=== PATIENT | female | born 1950 | race Two or more races ===

== ENCOUNTER 2017-04-23 19:42 | Emergency (ER) | payer MEDICARE, MEDICAID ==
[~2017-04-23] VITALS: Ht 167.6 cm; Wt 63.5 kg
[2017-04-23 19:45] VITALS: BP 152/100
[2017-04-23] MEDS ORDERED: Meclizine 25mg tab ORAL PRN (20:00)
--- NOTE | 2017-04-23 20:36 | Emergency Room Report ---
History of Present Illness General Chief Complaint: Nausea Source: EMS (Anca Curtis.Liz) Present Illness HPI 66-year-old female presents to the emergency department complaining of sudden onset of dizziness with nausea and non-bloody vomiting x40 minutes. Patient arrives the dizziness as if the room is spinning about her patient states that last several seconds and returns again. She denies abdominal pain, head trauma , fevers, chills, recent upper respiratory illness, tinnitus, changes in hearing. She denies difficulty with speech, weakness in the extremities Neck/ back pain, or having experienced this type of dizziness in the past. Pt. has Hx of fatty liver and hypothyroid. Denies significant changes in weight, or night sweats. Denies ill contacts with similar symptoms. Denies CP, Palpitations, LOC , AMS, dizziness, Changes in Vision, Sensation, paresthesias, or a sudden severe headache. (Anca Curtis) Allergies: Coded Allergies: LIDOCAINE (Verified Allergy, Unknown, 04/23/17) PIROXICAM (Verified Allergy, Unknown, 04/23/17) Patient History Past Medical History: see triage record, other - fatty liver Past Surgical History: none Pertinent Family History: none Last Menstrual Period: N/A Now: No Reviewed Nursing Documentation: PMH: Agreed, PSxH: Agreed (Anca Curtis) Review of Systems All Other Systems: negative except mentioned in HPI (Anca Curtis) Physical Exam Vital Signs Date Time Temp Pulse Resp B/P (MAP) Pulse Ox O2 Delivery O2 Flow Rate FiO2 04/23/17 19:35 98.4 85 18 152/100 98 Room Air Sp02 EP Interpretation: reviewed, normal General Appearance: alert, GCS 15, non-toxic, mild distress - actively vomiting Head: normocephalic, atraumatic Eyes: bilateral eye normal inspection, bilateral eye PERRL ENT: hearing grossly normal, normal voice, TMs + canals normal Neck: full range of motion Respiratory: chest non-tender, lungs clear, normal breath sounds, speaking full sentences Cardiovascular #1: regular rate, rhythm Cardiovascular #2: 2+ radial (R) Gastrointestinal: normal bowel sounds, non tender, soft, no guarding, no rebound Musculoskeletal: back normal, gait/station normal Neurologic: alert, oriented x3, responsive, motor strength/tone normal, sensory intact, normal gait, speech normal, no pronator, nystagmus - horizontal nystagmus upon tilting head to the right, no verticle nystagmus, turning head to either side in the supine position illicits vertigo and vomiting. Skin: normal color, no rash, warm/dry, well hydrated (Anca Curtis) Medical Decision Making PA Attestation Dr. Wilder is my supervising Physician whom patient management has been discussed with. (Anca Curtis) Diagnostic Impression: Primary Impression: Peripheral vertigo Qualified Codes: H81.399 - Other peripheral vertigo, unspecified ear Additional Impressions: Hypokalemia with normal acid-base balance Vomiting alone Qualified Codes: R11.11 - Vomiting without nausea ER Course 66-year-old female presents to the emergency department complaining of sudden onset of dizziness with nausea and non-bloody vomiting x40 minutes. Patient arrives the dizziness as if the room is spinning about her patient states that last several seconds and returns again. She denies abdominal pain, head trauma , fevers, chills, recent upper respiratory illness, tinnitus, changes in hearing. She denies difficulty with speech, weakness in the extremities Neck/ back pain, or having experienced this type of dizziness in the past. Pt. has Hx of fatty liver and hypothyroid. Denies significant changes in weight, or night sweats. Denies ill contacts with similar symptoms. Denies CP, Palpitations, LOC , AMS, dizziness, Changes in Vision, Sensation, paresthesias, or a sudden severe headache. Ddx considered but are not limited to Mnire's, BPPV, labrinitis, cerebellar stroke, hypovolemia, cardiac cause. Vital signs: are WNL, pt. is afebrile H&PE are most consistent with : peripheral vertigo will check cardiac labs and EKG ORDERS: -CBC: unremarkable -CMP: hypokalemia 2.9, and elevated glucose 152 -Troponins, CK- all negative ED INTERVENTIONS: -Zofran 4mg IV -1 liter NS Bolus IV -10mg Reglan IV -25mg Meclizine PO -KCl 60Meq PO -re-assessment pt. reports her symptoms have subsided, the dizziness has resolved able to turn her head side to side without return of the vertigo symptoms she previously had. pt. reports her stomach is sore and burning, and has a mild BADILLO. will give Zantac and Tylenol PO for these symptoms while awaiting final lab results. d/w pt. will d/c with rx for meclizine to be taken for dizziness, to follow up with her PCP within 3 days, or return sooner to the ED with worsening or new symptoms. DISCHARGE: At this time pt. is stable for d/c to home. Will provide printed patient care instructions, and any necessary prescriptions. Care plan and follow up instructions have been discussed with the patient prior to discharge. Labs Test 04/23/17 20:00 White Blood Count 6.8 K/UL (4.8-10.8) Red Blood Count 5.10 M/UL (4.20-5.40) Hemoglobin 15.3 G/DL (12.0-16.0) Hematocrit 45.4 % (37.0-47.0) Mean Corpuscular Volume 89 FL (80-99) Mean Corpuscular Hemoglobin 30.0 PG (27.0-31.0) Mean Corpuscular Hemoglobin Concent 33.7 G/DL (32.0-36.0) Red Cell Distribution Width 11.4 % (11.6-14.8) Platelet Count 160 K/UL (150-450) Mean Platelet Volume 7.5 FL (6.5-10.1) Neutrophils (%) (Auto) 46.7 % (45.0-75.0) Lymphocytes (%) (Auto) 41.4 % (20.0-45.0) Monocytes (%) (Auto) 6.5 % (1.0-10.0) Eosinophils (%) (Auto) 4.1 % (0.0-3.0) Basophils (%) (Auto) 1.3 % (0.0-2.0) Sodium Level 137 MMOL/L (136-145) Potassium Level 2.9 MMOL/L (3.5-5.1) Chloride Level 101 MMOL/L (98-107) Carbon Dioxide Level 23 MMOL/L (21-32) Anion Gap 13 mmol/L (5-15) Blood Urea Nitrogen 15 mg/dL (7-18) Creatinine 1.1 MG/DL (0.55-1.30) Estimat Glomerular Filtration Rate 49.6 mL/min (>60) Glucose Level 152 MG/DL (74-106) Calcium Level 9.8 MG/DL (8.5-10.1) Total Bilirubin 0.4 MG/DL (0.2-1.0) Aspartate Amino Transf (AST/SGOT) 39 U/L (15-37) Alanine Aminotransferase (ALT/SGPT) 46 U/L (12-78) Alkaline Phosphatase 106 U/L (46-116) Total Creatine Kinase 179 U/L (26-308) Troponin I 0.000 ng/mL (0.000-0.056) Total Protein 8.7 G/DL (6.4-8.2) Albumin 4.4 G/DL (3.4-5.0) Globulin 4.3 g/dL Albumin/Globulin Ratio 1.0 (1.0-2.7) (Anca Curtis P.A.) ER Course This patient was discussed in detail. I agree with assessment and care plan. (Connor Wilder M.D.) EKG Diagnostic Results EP Interpretation: Dr. Wilder Rate: normal - 60 bpm Rhythm: NSR ST Segments: no acute changes ASA given to the pt in ED: No PA Scribe Text this interpretation of Dr. Wilder has been scribed by ANDRAE Curtis (Anca Curtis P.A.) Last Vital Signs Date Time Temp Pulse Resp B/P (MAP) Pulse Ox O2 Delivery O2 Flow Rate FiO2 04/23/17 19:35 98.4 85 18 152/100 98 Room Air (Anca Curtis P.A.) Disposition: HOME, SELF-CARE Condition: Stable Scripts Ranitidine Hcl* (ZANTAC*) 150 Mg Tablet 150 MG ORAL TWICE A DAY for 5 Days, #10 TAB Prov: Anca Curtis P.A. 04/23/17 Meclizine Hcl* (VERTICALM*) 25 Mg Tablet 25 MG ORAL THREE TIMES A DAY for 7 Days, #21 TAB Prov: Anca Curtis P.A. 04/23/17 Patient Instructions: Vertigo Additional Instructions: Take medications as directed. Follow up with a Primary Care Provider in 3 days, even if your symptoms have resolved. May require Neurologist evaluation if symptoms persist, your PCP will provide you with a referral. --Please review list of primary care clinics, if you do not already have a primary care provider Return sooner to ED if new symptoms occur, or current symptoms become worse. Do not drink alcohol, drive, or operate heavy machinery while taking Meclizine as this may cause drowsiness. - Please note that this Emergency Department Report was dictated using [employer] processing [employer] leader technology software, occasionally this can lead to erroneous entry secondary to interpretation by the dictation equipment. Anca Curtis Apr 23, 2017 20:36 Connor Wilder M.D. Apr 27, 2017 23:05
[2017-04-23] MEDS ORDERED: Metoclopramide 10mg/2ml Inj IVP ONE (20:45)
[2017-04-23] MEDS ORDERED: VERTICALM25 MG ORAL (21:33)
[2017-04-23] MEDS ORDERED: ZANTAC150 MG ORAL (21:33)
[2017-04-23 21:50] LABS: BASOPHILS % (AUTO) 1.3 % (0.0-2.0); EOSINOPHILS % (AUTO) 4.1 % (0.0-3.0); HEMATOCRIT 45.4 % (37.0-47.0); HEMOGLOBIN 15.3 G/DL (12.0-16.0); LYMPHOCYTES % (AUTO) 41.4 % (20.0-45.0); MEAN CORPUSCULAR VOLUME 89 FL (80-99); MONOCYTES % (AUTO) 6.5 % (1.0-10.0); NEUTROPHILS % (AUTO) 46.7 % (45.0-75.0); PLATELET COUNT 160 K/UL (150-450); RED CELL DISTRIBUTION WIDTH 11.4 % (11.6-14.8); WHITE BLOOD COUNT 6.8 K/UL (4.8-10.8)
[2017-04-23 22:00] VITALS: BP 148/96
[2017-04-23 22:16] LABS: ALANINE AMINOTRANSFERASE 46 U/L (12-78); ALBUMIN 4.4 G/DL (3.4-5.0); ALKALINE PHOSPHATASE 106 U/L (46-116); ANION GAP 13 mmol/L (5-15); ASPARTATE AMINO TRANSFERASE 39 U/L (15-37); BILIRUBIN,TOTAL 0.4 MG/DL (0.2-1.0); BLOOD UREA NITROGEN 15 mg/dL (7-18); CALCIUM 9.8 MG/DL (8.5-10.1); CARBON DIOXIDE 23 MMOL/L (21-32); CHLORIDE 101 MMOL/L (98-107); CREATINE KINASE 179 U/L (26-308); CREATININE 1.1 MG/DL (0.55-1.30); POTASSIUM 2.9 MMOL/L (3.5-5.1); SODIUM 137 MMOL/L (136-145)
[2017-04-23 22:28] VITALS: BP 152/100
--- NOTE | 2017-04-24 14:40 | Cardiology Report ---
APPROVED REPORT EKG Measurement Heart [id number] [place] [id number] Normal sinus rhythm Minimal voltage criteria for LVH, may be normal variant Borderline ECG
--- NOTE | 2017-04-24 14:40 | Cardiology Report ---
APPROVED REPORT EKG Measurement Heart [id number] [place] [id number] Normal sinus rhythm Minimal voltage criteria for LVH, may be normal variant Borderline ECG
--- NOTE | 2017-04-24 14:40 | Cardiology Report ---
APPROVED REPORT EKG Measurement Heart [id number] [place] [id number] [id number] Normal sinus rhythm Minimal voltage criteria for LVH, may be normal variant Borderline ECG
== END 2017-04-23 22:28 | disposition home or self-care (01) ==
LOC: EDBD 19:42 → EMR 21:00
DX: H81.399 Other peripheral vertigo, unspecified ear (principal); E87.6 Hypokalemia; R11.2 Nausea with vomiting, unspecified; E03.9 Hypothyroidism, unspecified; K76.0 Fatty (change of) liver, not elsewhere classified
CPT/HCPCS: 36415; 80053; 82550; 84484; 85025; 93005; 96374; 96375; 99284; J2405; J2765; J8499